=== PATIENT | female | born 1980 | race Caucasian/White ===

== ENCOUNTER 2018-05-10 08:13 | Emergency (ER) | payer MEDICAID ==
[2018-05-10 08:15] VITALS: BMI 24.6
[2018-05-10 08:17] VITALS: RESP 18; TEMP 101.8
[2018-05-10] MEDS ORDERED: Sodium Chloride 0.9% 1,000 ML IV STA (08:45)
--- NOTE | 2018-05-10 08:52 | ED PDOC ---
Syncope/Near Syncope/Dizziness Time Seen by Provider: 05/10/18 08:18 Chief Complaint (Nursing): Dizziness/Lightheaded Chief Complaint (Provider): Dizziness/Lightheaded History Per: Patient History/Exam Limitations: no limitations Onset/Duration Of Symptoms: Days (x2 days) Current Symptoms Are (Timing): Still Present Additional Complaint(s): 37 year old female with a past medical history of multiple throat infections within the past year, presents to the emergency department complaining of sore throat, fever, body aches, vomiting and dizziness, onset x2 days. Patient reports that she has not been able to tolerate PO and denies any cough, abdominal pain, or diarrhea. PMD: no provider Past Medical History Reviewed: Historical Data, Nursing Documentation, Vital Signs Vital Signs: Last Vital Signs Temp 101.8 F H 05/10/18 08:15 Pulse 177 H 05/10/18 08:15 Resp 18 05/10/18 08:15 BP 102/54 L 05/10/18 08:15 Pulse Ox 98 05/10/18 08:22 - Medical History Other PMH: multiple throat infections - Surgical History Surgical History: No Surg Hx - Family History Family History: States: Unknown Family Hx - Home Medications Home Medications: Ambulatory Orders Medication Instructions Recorded Ibuprofen 600 mg PO Q6 PRN #30 tab 02/15/15 Oxycodone HCl/Acetaminophen 1 tab PO Q4 PRN #30 tab 02/15/15 [Percocet 325 mg-5 mg] Amoxicillin/Potassium Clav 1 tab PO TID #30 tab 05/10/18 [Augmentin 500 mg-125 mg] Naproxen [Naprosyn] 500 mg PO Q12H #20 tab 05/10/18 Ondansetron [Zofran] 4 mg PO Q8H #10 tab 05/10/18 - Allergies Allergies/Adverse Reactions: Allergies Allergy/AdvReac Type Severity Reaction Status Date / Time apple Allergy Mild RASH Verified 05/10/18 08:21 burks Allergy Mild RASH Verified 05/10/18 08:22 latex Allergy Mild RASH Verified 05/10/18 08:21 Review of Systems ROS Statement: Except As Marked, All Systems Reviewed And Found Negative Constitutional: Positive for: Fever, Other (body aches) ENT: Positive for: Throat Pain Respiratory: Negative for: Cough Gastrointestinal: Positive for: Vomiting. Negative for: Abdominal Pain, Diarrhea Neurological: Positive for: Dizziness Physical Exam - Reviewed Nursing Documentation Reviewed: Yes Vital Signs Reviewed: Yes - Physical Exam Appears: Positive for: Non-toxic, No Acute Distress Head Exam: Positive for: ATRAUMATIC, NORMOCEPHALIC Skin: Positive for: Normal Color, Warm, Dry Eye Exam: Positive for: Normal appearance, EOMI, PERRL ENT: Positive for: Pharyngeal Erythema (swollen), Tonsillar Exudate (bilaterally), Other (mucous membranes: dry; (-) peritonsillar abscess; (-) deviation of uvula ) Neck: Positive for: Normal, Painless ROM, Supple Cardiovascular/Chest: Positive for: Regular Rate, Rhythm. Negative for: Murmur Respiratory: Positive for: Normal Breath Sounds. Negative for: Respiratory Distress Gastrointestinal/Abdominal: Positive for: Normal Exam, Soft. Negative for: Tenderness Back: Positive for: Normal Inspection. Negative for: L CVA Tenderness, R CVA Tenderness, Vertebral Tenderness Extremity: Positive for: Normal ROM. Negative for: Pedal Edema, Deformity Neurologic/Psych: Positive for: Alert, Oriented. Negative for: Motor/Sensory Deficits - Laboratory Results Result Diagrams: 05/10/18 08:52 05/10/18 09:29 - ECG O2 Sat by Pulse Oximetry: 98 (RA) Pulse Ox Interpretation: Normal - Progress Re-evaluation Time: 11:40 Condition: Improved (Feels better tolerating PO) Medical Decision Making Medical Decision Makin Impression: Considering tonsillitis Plan: Patient appears dehydrated and will obtain strep and flu swabs. Will hydra te via IV --CMP --ED urine --ED urine dipstick --CBC with differential --Rapid strep group a antigen --Influenza A B --Toradol 30 mg IVP --Sodium chloride 1,000 ml --Zofran inj 4 mg IVP Scribe Attestation: Documented by Sloan Lloyd, acting as a scribe for Ulises Newman MD. Provider Scribe Attestation: All medical record entries made by the Scribe were at my direction and p ersonally dictated by me. I have reviewed the chart and agree that the record accurately reflects my personal performance of the history, physical exam, medical decision making, and the department course for this patient. I have also personally directed, reviewed, and agree with the discharge instructions and disposition. Disposition - Clinical Impression Clinical Impression: Tonsillitis - Patient ED Disposition Is Patient to be Admitted: No - Disposition Referrals: Abdulaziz Ramos MD [Medical Doctor] - Disposition: Routine/Home Disposition Time: 11:41 Condition: FAIR Prescriptions: Amoxicillin/Potassium Clav [Augmentin 500 mg-125 mg] 1 tab PO TID #30 tab Naproxen [Naprosyn] 500 mg PO Q12H #20 tab Ondansetron [Zofran] 4 mg PO Q8H #10 tab Instructions: Bacterial Upper Respiratory Infection, Adult Forms: [facility] (Indonesian)
[2018-05-10 09:10] LABS: BASO # 0.1 K/uL (0.0-0.2); BASO % 0.6 % (0.0-2.0); EOS # 0.1 K/uL (0.0-0.7); EOS % 0.5 % (0.0-4.0); HEMOGLOBIN 13.6 g/dL (12.0-16.0); LYMPH # 0.7 K/uL (1.0-4.3); LYMPH % 5.1 % (20.0-40.0); MEAN CELL VOLUME 92.2 fl (81.0-99.0); MEAN CORPUSCULAR HEMOGLOBIN 31.1 pg (27.0-31.0); MEAN CORPUSCULAR HGB CONC 33.8 g/dL (33.0-37.0); MEAN PLATELET VOLUME 9.7 fl (7.2-11.7); MONO # 0.6 K/uL (0.0-0.8); MONO % 4.5 % (0.0-10.0); NEUT # 11.6 K/uL (1.8-7.0); NEUT % 89.3 % (50.0-75.0); NRBC % 0.1 % (0.0-0.0); PLATELET COUNT 213 K/uL (130-400); RBC 4.36 Mil/uL (3.80-5.20); RED CELL DISTRIBUTION WIDTH 13.3 % (11.5-14.5)
[2018-05-10 09:59] LABS: ALT/SGPT 22 U/L (9-52); AST/SGOT 19 U/L (14-36); BLOOD UREA NITROGEN 16 mg/dl (7-17); CALCIUM 8.2 mg/dL (8.4-10.2); GFR NON-AFRICAN AMERICAN > 60
[2018-05-10] MEDS ORDERED: Potassium Chloride 20 mEq ER Tab PO ONE ×2 (10:03→12:27)
[2018-05-10 12:17] LABS: BANDS 4 % (0-2); LYMPHOCYTE 13 % (20-50); MONOCYTE 6 % (0-10); NEUTROPHIL 75 % (42-75); PLATELET ESTIMATE NORMAL (NORMAL); REACTIVE LYMPHOCYTES 2 % (0-0); TOTAL CELLS COUNTED 100
[2018-05-10 12:37] VITALS: BP 100/59; PULSE 74; O2SAT 99
== END 2018-05-10 11:41 | disposition home or self-care (01) ==
LOC: H.ER 08:13
DX: J03.90 Acute tonsillitis, unspecified (principal)
CPT/HCPCS: 80053; 81025; 85025; 87070; 87430; 87804; 96374; 96375; 99285; J1885; J2405; J7030